=== PATIENT | female | born 1965 | race Native Hawaiian/Other Pacific Islander ===

== ENCOUNTER 2017-02-02 09:54 | Outpatient (CLI) | payer OTHER ==
[~2017-02-02] VITALS: Ht 162.6 cm; Wt 105.7 kg
[~2017-02-02 09:54] MED LIST: ACET7.5T70 PO; ALBUTEROL0.083 % IN; AMLO2.5T PO; BACLOFEN10 MG PO; BIOTIN5000 MCG PO; CYCL10TA35 PO; D 5000 PO; DULERA1 AE1 IN; FOLI1TAB26 PO; GABA100C2 PO; GABA300C2 PO; HYDR10TA47 PO; HYDROXYCHLOR200 MG PO; LAXATIVE1 TAB PO; LEVAQUIN750 MG PO; LYRICA150 MG PO; MEDROL DOSEPAK4 MG OR; MELO-13 PO; METHYLPR SS125 MG IJ; METO50TA27 PO; PANT40TA PO; SAVELLA50 MG PO; SIMV20TA2 PO; SINGULAIR10 MG PO; SPIRIVA IN; SYNTHROID; SYNTHROID137 MCG PO; TIOTCAP2 INH; TIZA4TAB5 PO; TRAM50TA PO; TREXALL5 MG PO; UNITH DIRECT100 MCG PO
[2017-02-02 10:00] VITALS: BP 104/74; TEMP 98.2
== END 2017-02-02 10:47 | disposition home or self-care (01) ==
LOC: INF 09:54
DX: Z45.2 Encounter for adjustment and management of vascular access device (principal)
CPT/HCPCS: 96374; 96523; J1642

== ENCOUNTER 2017-03-02 09:45 | Outpatient (CLI) | payer OTHER ==
[~2017-03-02] VITALS: Ht 162.6 cm; Wt 105.7 kg
[2017-03-02 12:11] VITALS: BP 113/60; TEMP 98.2
== END 2017-03-02 20:26 | disposition home or self-care (01) ==
LOC: INF 09:45
DX: Z45.2 Encounter for adjustment and management of vascular access device (principal)
CPT/HCPCS: 96374; J1642

== ENCOUNTER 2017-04-06 09:15 | Outpatient (CLI) | payer OTHER ==
[2017-04-06 10:17] LABS: PLATELET COUNT 272 K/uL (152-353)
[2017-04-06 10:24] VITALS: BP 151/82; TEMP 98.6
[2017-04-06 10:25] LABS: POTASSIUM 3.4 mmol/L (3.6-5.2); SODIUM 138 mmol/L (136-145)
== END 2017-04-06 09:50 | disposition home or self-care (01) ==
LOC: INF 09:15
PROVIDERS: Emergency Medicine
DX: I10 Essential (primary) hypertension (principal); K21.0 Gastro-esophageal reflux disease with esophagitis; R60.0 Localized edema
CPT/HCPCS: 80053; 80061; 82043; 82570; 84436; 84443; 84479; 85027; 96374; J1642

== ENCOUNTER 2017-05-04 09:24 | Outpatient (CLI) | payer OTHER | END 2017-05-04 09:55 | disposition home or self-care (01) | LOC: INF 09:24 | DX: Z45.2 Encounter for adjustment and management of vascular access device (principal) | CPT/HCPCS: 96523; J1642 ==

== ENCOUNTER 2017-06-01 09:39 | Outpatient (CLI) | payer OTHER | END 2017-06-01 10:23 | disposition home or self-care (01) | LOC: INF 09:39 | DX: I87.2 Venous insufficiency (chronic) (peripheral) (principal) | CPT/HCPCS: 96374; J1642 ==

== ENCOUNTER 2017-06-29 10:01 | Outpatient (CLI) | payer OTHER ==
[~2017-06-29] VITALS: Ht 162.6 cm; Wt 105.7 kg
== END 2017-06-29 20:01 | disposition home or self-care (01) ==
LOC: INF 10:01
DX: Z45.2 Encounter for adjustment and management of vascular access device (principal)
CPT/HCPCS: 96523; J1642

== ENCOUNTER 2017-07-27 09:44 | Outpatient (CLI) | payer OTHER ==
[~2017-07-27] VITALS: Ht 162.6 cm; Wt 105.7 kg
[2017-07-27 10:22] LABS: PLATELET COUNT 231 K/uL (152-353)
[2017-07-27 10:41] LABS: POTASSIUM 3.5 mmol/L (3.6-5.2)
== END 2017-07-27 18:55 | disposition home or self-care (01) ==
LOC: INF 09:44
PROVIDERS: Emergency Medicine
DX: G47.8 Other sleep disorders (principal); H16.223 Keratoconjunctivitis sicca, not specified as Sjogren's, bilateral; I15.8 Other secondary hypertension; I73.00 Raynaud's syndrome without gangrene; K11.7 Disturbances of salivary secretion; Z45.2 Encounter for adjustment and management of vascular access device
CPT/HCPCS: 36591; 80053; 85027; 85651; 96374; J1642

== ENCOUNTER 2017-09-06 12:46 | Outpatient (CLI) | payer OTHER ==
[2017-09-06 13:00] VITALS: BP 147/77; TEMP 98.2
== END 2017-09-06 13:15 | disposition home or self-care (01) ==
LOC: INF 12:46
DX: I87.2 Venous insufficiency (chronic) (peripheral) (principal)
CPT/HCPCS: 96523

== ENCOUNTER 2017-10-31 10:34 | Outpatient (CLI) | payer OTHER ==
[2017-10-31 11:10] VITALS: BP 143/75; TEMP 98.6
[2017-10-31 12:00] LABS: PLATELET COUNT 166 K/uL (152-353)
[2017-10-31 12:07] LABS: SODIUM 144 mmol/L (136-145)
== END 2017-10-31 11:10 | disposition home or self-care (01) ==
LOC: INF 10:34
PROVIDERS: Emergency Medicine
DX: I87.2 Venous insufficiency (chronic) (peripheral) (principal); I10 Essential (primary) hypertension; E78.4 Other hyperlipidemia; E55.9 Vitamin D deficiency, unspecified; Z79.899 Other long term (current) drug therapy; Z51.81 Encounter for therapeutic drug level monitoring
CPT/HCPCS: 36591; 80053; 80061; 82306; 83036; 83735; 84436; 84443; 84479; 85027; 96374

== ENCOUNTER 2017-12-04 11:33 | Outpatient (CLI) | payer OTHER ==
[2017-12-04 11:50] VITALS: BP 118/76; TEMP 98.2
== END 2017-12-04 12:00 | disposition home or self-care (01) ==
LOC: INF 11:33
DX: I87.2 Venous insufficiency (chronic) (peripheral) (principal)
CPT/HCPCS: 96523

== ENCOUNTER 2018-03-15 10:21 | Outpatient (CLI) | payer OTHER | END 2018-03-15 19:16 | disposition home or self-care (01) | LOC: INF 10:21 | DX: I87.2 Venous insufficiency (chronic) (peripheral) (principal) | CPT/HCPCS: 96374; J1642 ==

== ENCOUNTER 2018-03-22 09:06 | Outpatient (CLI) | payer OTHER ==
[2018-03-22 11:17] LABS: PLATELET COUNT 336 K/uL (152-353)
== END 2018-03-22 22:13 | disposition home or self-care (01) ==
LOC: US 09:06 → LAB 09:06 → US 09:30
PROVIDERS: Internal Medicine Hematology & Oncology
DX: R16.1 Splenomegaly, not elsewhere classified (principal)
CPT/HCPCS: 36415; 82272; 82705; 85027; 87015; 87045; 87205; 87324; 87328; 87329; 87449; 87899

== ENCOUNTER 2018-04-01 08:26 | Outpatient (CLI) | payer OTHER ==
[2018-04-01 10:28] LABS: PLATELET COUNT 255 K/uL (152-353)
[2018-04-01 10:48] LABS: POTASSIUM 3.7 mmol/L (3.6-5.2)
== END 2018-04-01 09:22 | disposition home or self-care (01) ==
LOC: LABW 08:26 → INF 08:26 → LAB 08:26 → INF 09:22
PROVIDERS: Family Medicine
DX: E78.00 Pure hypercholesterolemia, unspecified (principal); E03.8 Other specified hypothyroidism; Z45.2 Encounter for adjustment and management of vascular access device
CPT/HCPCS: 80053; 80061; 84439; 84443; 84481; 85027; 96374

== ENCOUNTER 2018-04-03 11:27 | Day surgery (SDC) | payer OTHER | END 2018-04-03 15:05 | disposition home or self-care (01) | LOC: OR 11:27 | PROC: 0DBE8ZZ Excision of Large Intestine, Via Natural or Artificial Opening Endoscopic (ICD-10-PCS; principal; 2018-04-03) | DX: K64.8 Other hemorrhoids (principal); R19.4 Change in bowel habit; R19.7 Diarrhea, unspecified; R10.30 Lower abdominal pain, unspecified; D50.8 Other iron deficiency anemias; R63.4 Abnormal weight loss; Z12.11 Encounter for screening for malignant neoplasm of colon | CPT/HCPCS: J1642; J2704 ==

== ENCOUNTER 2018-04-29 10:05 | Outpatient (CLI) | payer OTHER ==
[2018-04-29 11:44] LABS: PLATELET COUNT 258 K/uL (152-353)
[2018-04-29 12:06] LABS: POTASSIUM 3.6 mmol/L (3.6-5.2)
== END 2018-04-29 19:48 | disposition home or self-care (01) ==
LOC: INF 10:05
DX: I73.00 Raynaud's syndrome without gangrene (principal); M06.09 Rheumatoid arthritis without rheumatoid factor, multiple sites; M35.01 Sjogren syndrome with keratoconjunctivitis; Z79.899 Other long term (current) drug therapy; Z51.81 Encounter for therapeutic drug level monitoring
CPT/HCPCS: 36591; 80053; 82272; 82705; 85027; 85651; 87015; 87045; 87205; 87324; 87328; 87329; 87449; 87899; 96374

== ENCOUNTER 2018-05-23 08:52 | Outpatient (CLI) | payer OTHER ==
[~2018-05-23] VITALS: Ht 162.6 cm; Wt 108.9 kg
== END 2018-05-23 19:33 | disposition home or self-care (01) ==
LOC: INF 08:52
DX: R16.1 Splenomegaly, not elsewhere classified (principal); D50.8 Other iron deficiency anemias
CPT/HCPCS: 96365; J1642; Q0138

== ENCOUNTER 2018-05-27 10:02 | Outpatient (CLI) | payer OTHER | END 2018-05-27 20:20 | disposition home or self-care (01) | LOC: INF 10:02 | DX: R16.1 Splenomegaly, not elsewhere classified (principal); D50.8 Other iron deficiency anemias | CPT/HCPCS: 96365; 96375; J1642; Q0138 ==

== ENCOUNTER 2018-06-24 09:39 | Outpatient (CLI) | payer OTHER | END 2018-06-24 19:36 | disposition home or self-care (01) | LOC: INF 09:39 | DX: I87.2 Venous insufficiency (chronic) (peripheral) (principal) | CPT/HCPCS: 96374; J1642 ==

== ENCOUNTER 2018-09-04 09:29 | Outpatient (CLI) | payer OTHER ==
[2018-09-04 10:53] LABS: PLATELET COUNT 207 K/uL (152-353)
[2018-09-04 11:02] LABS: POTASSIUM 3.9 mmol/L (3.6-5.2)
== END 2018-09-04 19:17 | disposition home or self-care (01) ==
LOC: LABW 09:29 → INF 09:29
DX: I73.00 Raynaud's syndrome without gangrene (principal); M06.09 Rheumatoid arthritis without rheumatoid factor, multiple sites; M79.7 Fibromyalgia; E78.00 Pure hypercholesterolemia, unspecified; I15.8 Other secondary hypertension; Z79.52 Long term (current) use of systemic steroids; Z79.899 Other long term (current) drug therapy
CPT/HCPCS: 80053; 80061; 81000; 82043; 82306; 82570; 82784; 82785; 83036; 83735; 84479; 85027; 85651; 86140; 86160; 96374

== ENCOUNTER 2018-11-01 11:08 | Outpatient (CLI) | payer OTHER ==
[2018-11-01 11:15] VITALS: BP 120/49; TEMP 98.7
[2018-11-01 11:45] LABS: PLATELET COUNT 220 K/uL (152-353)
== END 2018-11-01 11:35 | disposition home or self-care (01) ==
LOC: INF 11:08
PROVIDERS: Internal Medicine Gastroenterology
DX: D50.8 Other iron deficiency anemias (principal); Z43.8 Encounter for attention to other artificial openings
CPT/HCPCS: 36591; 85027; 96374

== ENCOUNTER 2018-11-08 09:33 | Outpatient (CLI) | payer OTHER | END 2018-11-08 22:14 | disposition home or self-care (01) | LOC: US 09:33 | DX: R10.11 Right upper quadrant pain (principal) ==

== ENCOUNTER 2019-02-12 13:07 | Outpatient (CLI) | payer OTHER ==
[2019-02-12 13:13] VITALS: BP 107/61; TEMP 98
== END 2019-02-12 13:25 | disposition home or self-care (01) ==
LOC: INF 13:07
DX: I87.2 Venous insufficiency (chronic) (peripheral) (principal); I45.2 Bifascicular block
CPT/HCPCS: 96523

== ENCOUNTER 2019-03-12 12:47 | Outpatient (CLI) | payer OTHER ==
[2019-03-12 13:00] VITALS: BP 100/54; TEMP 98.6
[2019-03-12 13:30] LABS: PLATELET COUNT 184 K/uL (152-353)
[2019-03-12 13:51] LABS: POTASSIUM 3.6 mmol/L (3.6-5.2)
== END 2019-03-12 20:14 | disposition home or self-care (01) ==
LOC: INF 12:47
DX: I10 Essential (primary) hypertension (principal); K20.0 Eosinophilic esophagitis; G89.4 Chronic pain syndrome; M79.7 Fibromyalgia; I45.2 Bifascicular block
CPT/HCPCS: 36591; 80053; 80061; 82043; 82570; 84436; 84443; 84479; 85027; 96374

== ENCOUNTER 2019-03-14 13:44 | Outpatient (CLI) | payer OTHER ==
[2019-03-14] MEDS ORDERED: PILOCARPINE5 MG PO (17:30)
[2019-03-14] MEDS ORDERED: METO50TA27 PO (17:31)
[2019-03-14] MEDS ORDERED: KP FOLIC ACID1 MG PO (17:36)
[2019-03-14] MEDS ORDERED: TIZANIDINE HYDRO4 MG PO (17:37)
[2019-03-14] MEDS ORDERED: LEFLUNOMIDE20 MG PO (17:38)
[2019-03-14] MEDS ORDERED: LEVO0.1224 PO (17:40)
[2019-03-14] MEDS ORDERED: LEVE500T5 PO (17:41)
[2019-03-14] MEDS ORDERED: MONT10TA PO (17:41)
[2019-03-14] MEDS ORDERED: DRISDOL50000 UNIT PO (17:44)
[2019-03-14] MEDS ORDERED: DALIRESP500 MC1 PO (17:45)
[2019-03-14] MEDS ORDERED: CITALOPRAM20 M1 PO (17:46)
[2019-03-14] MEDS ORDERED: XELJANZ5 MG PO (17:46)
[2019-03-14] MEDS ORDERED: LIPITOR10 MG PO (17:46)
[2019-03-14] MEDS ORDERED: INCRUSE EL62.5 MCG/I INH (17:47)
[2019-03-14] MEDS ORDERED: BUDE1AER5 INH (17:48)
[2019-03-14] MEDS ORDERED: HYDR-3182 PO (17:52)
[2019-03-14] MEDS ORDERED: OXYB5TAB56 PO (17:54)
== END 2019-03-14 13:45 | disposition short-term general hospital (02) ==
LOC: AMB 13:44
DX: R50.9 Fever, unspecified (principal); R11.2 Nausea with vomiting, unspecified; A08.8 Other specified intestinal infections
CPT/HCPCS: A0425; A0429

== ENCOUNTER 2019-03-14 13:47 | Inpatient (IN) | payer OTHER ==
[~2019-03-14] VITALS: Ht 162.6 cm; Wt 123.5 kg
[2019-03-14 13:58] VITALS: BP 114/65; TEMP 102.2
[2019-03-14 14:44] LABS: PLATELET COUNT 176 K/uL (152-353)
[2019-03-14 14:54] LABS: POTASSIUM 3.4 mmol/L (3.6-5.2)
[2019-03-14 15:40] VITALS: BP 143/53; TEMP 103
[2019-03-14 16:30] VITALS: BP 124/50; TEMP 100.6
[2019-03-14 16:50] VITALS: BP 128/54; TEMP 98.7
[2019-03-14 16:56] VITALS: BP 128/54; TEMP 98.7; Ht 162.6 cm; Wt 123.5 kg
[2019-03-14] MEDS ORDERED: PILOCARPINE5 MG PO (17:30)
[2019-03-14] MEDS ORDERED: METO50TA27 PO (17:31)
[2019-03-14] MEDS ORDERED: KP FOLIC ACID1 MG PO (17:36)
[2019-03-14] MEDS ORDERED: TIZANIDINE HYDRO4 MG PO (17:37)
[2019-03-14] MEDS ORDERED: LEFLUNOMIDE20 MG PO (17:38)
[2019-03-14] MEDS ORDERED: LEVO0.1224 PO (17:40)
[2019-03-14] MEDS ORDERED: MONT10TA PO (17:41)
[2019-03-14] MEDS ORDERED: LEVE500T5 PO (17:41)
[2019-03-14] MEDS ORDERED: DRISDOL50000 UNIT PO (17:44)
[2019-03-14] MEDS ORDERED: DALIRESP500 MC1 PO (17:45)
[2019-03-14] MEDS ORDERED: CITALOPRAM20 M1 PO (17:46)
[2019-03-14] MEDS ORDERED: XELJANZ5 MG PO (17:46)
[2019-03-14] MEDS ORDERED: LIPITOR10 MG PO (17:46)
[2019-03-14] MEDS ORDERED: INCRUSE EL62.5 MCG/I INH (17:47)
[2019-03-14] MEDS ORDERED: BUDE1AER5 INH (17:48)
[2019-03-14] MEDS ORDERED: HYDR-3182 PO (17:52)
[2019-03-14] MEDS ORDERED: OXYB5TAB56 PO (17:54)
[2019-03-14 20:00] VITALS: BP 92/64; TEMP 98.2
[2019-03-15] VITALS: BP 123/55; TEMP 98.7
[2019-03-15 04:00] VITALS: BP 110/53; TEMP 98
[2019-03-15 05:14] LABS: PLATELET COUNT 161 K/uL (152-353)
[2019-03-15 05:43] LABS: POTASSIUM 3.4 mmol/L (3.6-5.2)
[2019-03-15 08:00] VITALS: BP 109/50; TEMP 98.4
[2019-03-15 12:00] VITALS: BP 92/39; TEMP 98.4
[2019-03-15 16:00] VITALS: BP 95/44; TEMP 98.3
[2019-03-15 20:00] VITALS: BP 117/54; TEMP 98.1
[2019-03-16] VITALS: BP 100/57; TEMP 98.9
[2019-03-16 04:00] VITALS: BP 112/60; TEMP 98.7
[2019-03-16 05:06] LABS: PLATELET COUNT 146 K/uL (152-353)
[2019-03-16 06:24] LABS: POTASSIUM 3.5 mmol/L (3.6-5.2)
[2019-03-16 08:00] VITALS: BP 122/69; TEMP 98.4
[2019-03-16 12:00] VITALS: BP 99/52; TEMP 98.5
[2019-03-16 16:00] VITALS: BP 121/63; TEMP 98.8
[2019-03-16 20:00] VITALS: BP 108/54; TEMP 98.7
[2019-03-17] VITALS: BP 110/63; TEMP 98.5
[2019-03-17 04:00] VITALS: BP 90/50; TEMP 98.6
[2019-03-17 06:25] LABS: PLATELET COUNT 157 K/uL (152-353)
[2019-03-17 06:38] LABS: POTASSIUM 3.4 mmol/L (3.6-5.2)
[2019-03-17 08:00] VITALS: BP 120/62; TEMP 98.4
[2019-03-17 12:00] VITALS: BP 115/72; TEMP 98.1
[2019-03-17 16:00] VITALS: BP 148/67; TEMP 98.2
== END 2019-03-17 16:43 | disposition short-term general hospital (02) | DRG 190 ==
LOC: ED 13:47 → MED/SURG 15:00
PROVIDERS: ADMIT Emergency Medicine
DX: J44.0 Chronic obstructive pulmonary disease with (acute) lower respiratory infection (principal); J18.8 Other pneumonia, unspecified organism; E87.0 Hyperosmolality and hypernatremia; R51 Headache; R11.2 Nausea with vomiting, unspecified; E87.6 Hypokalemia; K21.9 Gastro-esophageal reflux disease without esophagitis; M79.7 Fibromyalgia; F41.8 Other specified anxiety disorders
CPT/HCPCS: 36600; 80053; 81000; 82805; 83605; 83880; 85027; 87015; 87040; 87045; 87070; 87077; 87186; 87205; 87324; 87449; 87502; 87899; 93005; 94640; 94664; 94760; 96361; 96365; 99284; J0456; J0696; J1650; J2405

== ENCOUNTER 2019-03-17 17:01 | Outpatient (CLI) | payer OTHER ==
[~2019-03-17 17:01] MED LIST changes: +BUDE1AER5 INH; +CITALOPRAM20 M1 PO; +DALIRESP500 MC1 PO; +DRISDOL50000 UNIT PO; +HYDR-3182 PO; +INCRUSE EL62.5 MCG/I INH; +KP FOLIC ACID1 MG PO; +LEFLUNOMIDE20 MG PO; +LEVE500T5 PO; +LEVO0.1224 PO; +LIPITOR10 MG PO; +MONT10TA PO; +OXYB5TAB56 PO; +PILOCARPINE5 MG PO; +TIZANIDINE HYDRO4 MG PO; +XELJANZ5 MG PO
== END 2019-03-17 17:36 | disposition short-term general hospital (02) ==
LOC: AMB 17:01
DX: J18.9 Pneumonia, unspecified organism (principal); R06.02 Shortness of breath; R11.0 Nausea
CPT/HCPCS: A0425; A0429

== ENCOUNTER 2019-04-09 13:08 | Outpatient (CLI) | payer OTHER ==
[2019-04-09 13:32] VITALS: BP 126/56; TEMP 98.1
== END 2019-04-09 20:08 | disposition home or self-care (01) ==
LOC: INF 13:08
DX: I45.2 Bifascicular block (principal)
CPT/HCPCS: 96523

== ENCOUNTER 2019-05-02 10:27 | Inpatient (IN) | payer OTHER ==
[~2019-05-02] VITALS: Ht 162.6 cm; Wt 117.5 kg
[2019-05-02] VITALS (16 sets, daily range): BP systolic 110–177; BP diastolic 51–85; TEMP 98.4–100.8; Ht 162.6 cm; Wt 117.5 kg
[2019-05-02 11:38] LABS: PLATELET COUNT 182 K/uL (152-353)
[2019-05-02 11:44] LABS: POTASSIUM 2.9 mmol/L (3.6-5.2)
[2019-05-03] VITALS: BP 120/60; TEMP 98.8
[2019-05-03 03:57] VITALS: BP 114/52; TEMP 98.3
[2019-05-03 05:02] LABS: PLATELET COUNT 154 K/uL (152-353)
[2019-05-03 05:44] LABS: POTASSIUM 2.9 mmol/L (3.6-5.2)
[2019-05-03 08:00] VITALS: BP 120/57; TEMP 98.2
[2019-05-03 12:00] VITALS: BP 145/59; TEMP 98.4
[2019-05-03 16:00] VITALS: BP 121/62; TEMP 98.3
[2019-05-03 20:00] VITALS: BP 106/49; TEMP 98.3
[2019-05-04] VITALS (7 sets, daily range): BP systolic 109–151; BP diastolic 53–70; TEMP 97.8–98.6
[2019-05-04 05:16] LABS: PLATELET COUNT 186 K/uL (152-353)
[2019-05-04 05:31] LABS: POTASSIUM 3.4 mmol/L (3.6-5.2)
[2019-05-05 04:00] VITALS: BP 130/65; TEMP 98.9
[2019-05-05 08:00] VITALS: BP 156/78; TEMP 98.1
[2019-05-05 12:00] VITALS: BP 153/59; TEMP 98.1
[2019-05-05] MEDS ORDERED: LEFLUNOMIDE20 MG PO (15:19)
[2019-05-05 16:00] VITALS: BP 151/80; TEMP 98.2
== END 2019-05-05 18:40 | disposition home or self-care (01) | DRG 190 ==
LOC: ED 10:27 → MED/SURG 14:45
PROVIDERS: Internal Medicine; ADMIT Emergency Medicine Emergency Medical Services
DX: J44.0 Chronic obstructive pulmonary disease with (acute) lower respiratory infection (principal); J18.0 Bronchopneumonia, unspecified organism; J44.1 Chronic obstructive pulmonary disease with (acute) exacerbation; R59.1 Generalized enlarged lymph nodes; E87.6 Hypokalemia; M79.7 Fibromyalgia; I10 Essential (primary) hypertension; K21.9 Gastro-esophageal reflux disease without esophagitis; N32.81 Overactive bladder; M06.89 Other specified rheumatoid arthritis, multiple sites; E03.8 Other specified hypothyroidism
CPT/HCPCS: 36415; 36600; 80048; 80053; 82805; 83735; 84439; 84443; 85027; 85379; 87015; 87040; 87045; 87077; 87324; 87449; 87899; 93005; 94640; 94664; 94760; 96360; 96361; 96375; 99284; J0456; J1170; J1642; J1650; J1956; J2405; J2543; J2930; J3370; Q9963

== ENCOUNTER 2019-07-07 13:03 | Outpatient (CLI) | payer OTHER ==
[2019-07-07 13:05] VITALS: BP 142/47; TEMP 98.2
[2019-07-07 13:55] LABS: PLATELET COUNT 209 K/uL (152-353)
[2019-07-07 14:10] LABS: POTASSIUM 3.8 mmol/L (3.6-5.2)
== END 2019-07-07 13:33 | disposition home or self-care (01) ==
LOC: INF 13:03
PROVIDERS: Family Medicine
DX: H16.223 Keratoconjunctivitis sicca, not specified as Sjogren's, bilateral (principal); I73.00 Raynaud's syndrome without gangrene; M06.09 Rheumatoid arthritis without rheumatoid factor, multiple sites; M79.7 Fibromyalgia; R79.89 Other specified abnormal findings of blood chemistry
CPT/HCPCS: 36591; 80053; 85027; 85651; 86140; 96374

== ENCOUNTER 2019-08-07 13:37 | Outpatient (CLI) | payer OTHER ==
[2019-08-07 14:10] VITALS: BP 133/67; TEMP 98
== END 2019-08-07 19:59 | disposition home or self-care (01) ==
LOC: INF 13:37
DX: Z45.2 Encounter for adjustment and management of vascular access device (principal)
CPT/HCPCS: 96523

== ENCOUNTER 2019-11-20 12:40 | Outpatient (CLI) | payer OTHER | END 2019-11-20 19:34 | disposition home or self-care (01) | LOC: RAD 12:40 | DX: M06.09 Rheumatoid arthritis without rheumatoid factor, multiple sites (principal) ==